=== PATIENT | male | born 1990 | race Two or more races ===

== ENCOUNTER 2025-02-05 08:59 | Emergency (ER) | payer MEDICAID, SELFPAY ==
[2025-02-05 08:59] VITALS: BMI 55.7
[2025-02-05 09:06] VITALS: BP 155/92; PULSE 80; RESP 19; TEMP 36.7; O2SAT 97; BMI 56.5
--- NOTE | 2025-02-05 09:07 | XR_ITS ---
EXAMINATION: XR lumbar spine 2-3V ORDERING PROVIDER: JIM Dow HISTORY: Injured picking up heavy boulder one day prior. TECHNIQUE: 3 radiographs of the lumbar spine. COMPARISON: 11/25/2005, lumbar spine radiographs. FINDINGS: VERTEBRAE: 5 lumbar-type vertebral bodies. Normal height. No acute fracture. ALIGNMENT: Straightening of the normal lumbar lordotic curvature. DISC SPACES: Preserved. OSSEOUS DEGENERATIVE: None. SURROUNDING TISSUES: Normal. IMPRESSION: Straightening of the normal lumbar lordotic curvature, which may be positional or on the basis of muscle spasm.
--- NOTE | 2025-02-05 09:07 | EDNOTE_ITS ---
ED Back Injury Pain RME/HPI General Chief Complaint: Back Pain/Injury Stated Complaint: BACK INJURY TODAY Time Seen by Provider: 02/05/25 09:10 Source: patient Arrival date/time: 02/05/25 08:59 34-year-old male with no known medical history presents to the emergency room with a chief complaint of tenderness and pain to his lower back x 2 days. Patient states he was bending over and picking stuff up and began to have excruciating lower back pain. Mode of arrival: ambulatory Limitations: no limitations Related Data Previous Rx's ?Medication ?Instructions ?Recorded loratadine 10 mg tablet (Claritin) 10 mg PO QDAY #7 ta bs 05/13/23 cyclobenzaprine 10 mg tablet 10 mg PO TID #20 tabs 09/22 Allergies Allergy/AdvReac Type Severity Reaction Status Date / Time egg Allergy Severe HIVES Verified 02/05/25 09:01 Review of Systems Review of Systems Systems Reviewed: All systems reviewed, normal except as documented Constitutional Constitutional: Reports system reviewed and no additional complaints, except as documented, Denies fatigue, Denies fever(s), Denies headache(s) and Denies weakness Eyes Eyes: Reports system reviewed and no additional complaints, except as documented, Denies blurry vision and Denies change in vision ENT Ears, Nose, Mouth, and Throat: Reports system reviewed and no additional complaints, except as documented, Denies otalgia, Denies headache(s), Denies nasal congestion, Denies throat swelling and Denies vertigo Cardiovascular Cardiovascular: Reports system reviewed and no additional complaints, except as documented, Denies chest pain, Denies dyspnea and Denies dyspnea on exertion Respiratory Respiratory: Reports system reviewed and no additional complaints, except as documented, Denies chest congestion, Denies cough, Denies dyspnea, Denies dyspnea on exertion and Denies wheezing Gastrointestinal Gastrointestinal: Reports system reviewed and no additional complaints, except as documented, Denies abdominal pain, Denies cramping, Denies nausea and Denies vomiting Genitourinary Genitourinary: Reports system reviewed and no additional complaints, except as documented, Denies dysuria and Denies hematuria Musculoskeletal Musculoskeletal: Reports system reviewed and no additional complaints, except as documented, Reports arthralgias, Reports back pain and Reports muscle weakness Integumentary/Breasts Skin/Breast: Reports system reviewed and no additional complaints, except as documented and Denies wounds Neurologic Neurologic: Reports system reviewed and no additional complaints, except as documented, Denies confusion, Denies headache(s), Denies lack of coordination, Denies vertigo and Denies weakness Psychiatric Psychiatric: Reports system reviewed and no additional complaints, except as documented, Denies anxiety, Denies confusion, Denies depression, Denies paranoia, Denies suicidal ideation and Denies tactile hallucinations Endocrine Endocrine: Reports system reviewed and no additional complaints, except as documented and Denies fatigue Hematologic/Lymphatic Hematologic/Lymphatic: Reports system reviewed and no additional complaints, except as documented and Denies lymphadenopathy Allergic/Immunologic Allergic/Immunologic: Reports system reviewed and no additional complaints, except as documented, Denies throat swelling, Denies urticaria and Denies wheezing Past Medical History Past Medical History CARDIAC: Negative Congestive Heart Failure RESPIRATORY: Negative Chronic Obstructive Pulmonary Disease (COPD) GENITOURINARY: Negative Renal Disease ENDOCRINE: Negative Diabetes Mellitus Type 1 or Diabetes Mellitus Type 2 Social History SMOKING STATUS: Never smoker SUBSTANCE USE: does not use ED Exam General Limitations: Present no limitations General appearance: Present alert and in no apparent distress Head Head exam: Present atraumatic Eye Eye exam: Present normal appearance, PERRL and EOMI ENT ENT exam: Present normal exam, normal oropharynx and mucous membranes moist Neck Neck exam: Present normal inspection, full ROM and trachea midline Chest Chest inspection: Present normal inspection and symmetric chest wall rise Respiratory Respiratory exam: Present normal lung sounds bilaterally Cardiovascular Cardiovascular exam: Present regular rate, normal rhythm and normal heart sounds Abdominal Exam Abdominal exam: Present soft and normal bowel sounds Extremities Exam Extremities exam: Present normal inspection and full ROM Back Exam Back exam: Present normal inspection, full ROM, tenderness and vertebral tenderness Back 1 view image: 2 1. Tenderness and pain with palpation of the lower back Neurological Exam Neurological exam: Present alert, oriented X3 and CN II-XII intact Psychiatric Psychiatric exam: Present normal affect and normal mood Skin Skin exam: Present warm, dry, intact and normal color Course Quality Measures none Orders Category Date Time Status XR lumbar spine 2-3V Stat Exams 02/05/25 09:07 Completed Ketorolac Inj [Toradol Inj] Med 02/05/25 09:07 Discontinued 30 mg IM X1 ONE Vital Signs Vital signs: Vital Signs Temperature 98.1 F 02/05/25 09:06 Pulse Rate 80 02/05/25 09:06 Respiratory Rate 19 02/05/25 09:06 Blood Pressure 155/92 H 02/05/25 09:06 Pulse Oximetry (%) 97 02/05/25 09:06 Oxygen Delivery Method Room Air 02/05/25 09:06 O2 saturation 97% within normal limits Back Pain / Injury MDM Narrative MDM Narrative:: 34-year-old male with no known medical history presents to the emergency room with a chief complaint of tenderness and pain to his lower back x 2 days. Patient states he was bending over and picking stuff up and began to have excruciating lower back pain. Patient is hemodynamically stable and in no apparent distress Physical examination shows tenderness and pain with palpation of the lumbar area of the spine. The patient is also having pain and tenderness when walking. Patient denies any saddle anesthesia, loss of bowel or bladder function, or any numbness to the lower extremities. Patient is able to ambulate. X-ray of the lumbar spine was completed and was negative for any acute fracture or dislocation. Patient was discharged and educated to follow-up with primary care provider and return to the emergency room for any evidence of worsening signs or symptoms Patient data External records reviewed:: [facility] previous records Clinical information provided by:: patient Social determinants that could affect healthcare access:: none Patient has the following chronic illnesses:: Obesity How is presenting disease/condition affected by chronic disease/condition?: e xacerbated by Evaluation data The following diagnostics were reviewed and interpreted by me:: lab results and radiology exam(s) Lab and/or radiology exams considered but not ordered:: Labs and radiology exams considered and ordered Interpretation Summary: Lumbar [id number]: VERTEBRAE: 5 lumbar-type vertebral bodies. Normal height. No acute fracture. ALIGNMENT: Straightening of the normal lumbar lordotic curvature. DISC SPACES: Preserved. OSSEOUS DEGENERATIVE: None. SURROUNDING TISSUES: Normal. IMPRESSION: Straightening of the normal lumbar lordotic curvature, which may be positional or on the basis of muscle spasm. Medications / Prescriptions Medications or Prescriptions considered but not ordered:: Medication given Medication administrations:: Medication Administration History Discontinued Medications Ketorolac Tromethamine (Ketorolac Inj 60 Mg/2 Ml Vial) 30 mg IM X1 ONE Stop: 02/05/25 09:08 Last Admin: 02/05/25 09:28 Dose: 30 mg Documented By: DB Medication given Consultations Consultation(s) initiated? (list below): No Diagnosis Differential diagnosis back pain/injury: lumbar radiculopathy, strain of lumbar region, thoracic back pain and discitis Most likely diagnosis given after review of the tests above:: Strain of lumbar region Admission Indicated Admission indicated?: not indicated Admission Request Was there a request for admission?: No Disposition Plan Disposition Plan: Discharge Discharge Attestation Discharge Attestation: The patient and all family members were given an opportunity to ask questions and understood the discharge instructions. Discharge instructions specifically effects, indications for sooner follow up or return to the emergency department, and the expected course of current diagnosis. Patient condition: Stable Discharge Plan Plan Patient Disposition: HOME (Self Care) Disposition Comment: Stable Prescriptions/Referrals Prescriptions/Med Rec: New cyclobenzaprine 10 mg tablet 10 mg PO TID Qty: 20 0RF No Action loratadine [Claritin] 10 mg tablet 10 mg PO QDAY Qty: 7 0RF Referrals: Santiago Dooley MD [Primary Care Provider] - In 1 week Problem List Clinical Impression: Strain of lumbar region Patient/Caregiver Discharge Instructions Education Materials: ED Back Sprain/Strain Additional Instructions: Please follow-up with your primary care provider in the next 24 to 48 hours. X-ray of your lumbar spine was negative for any acute fracture or dislocation. Muscle relaxers were sent to your pharmacy to help you with your back sprain For any evidence of worsening signs or symptoms return to the emergency room immediately Print Language: [place] Stand Alone Forms: Mariaa Award Info., Work/School Release, Patient Portal Info Letter SALAZAR/JIM Supervising Physician SALAZAR/JIM Supervising Physician: Dr. Hubbard
[2025-02-05] MEDS: KETOROLAC INJ 60 MG/2 ML VIAL 30 MG IM (09:28)
== END 2025-02-05 09:47 | disposition home or self-care (01) ==
PROVIDERS: Emergency Provider Emergency Medicine; PCP Family Medicine
DX: S39.012A Strain of muscle, fascia and tendon of lower back, initial encounter (principal); E66.9 Obesity, unspecified; Z68.43 Body mass index [BMI] 50.0-59.9, adult; X50.1XXA Overexertion from prolonged static or awkward postures, initial encounter
CPT/HCPCS: 72100; 96372; 99283; J1885